=== PATIENT | female | born 1955 | race Caucasian/White ===

== ENCOUNTER 2023-12-29 14:26 | Day surgery (SDC) | payer MEDICARE, BC ==
[2023-12-29] MEDS: Polymyxin B/Trimethoprim 10 ML Bottle EYERT SCH (15:52)
[2023-12-29] MEDS: Brimonidine 0.2% Ophth Soln 5 ML Bottle EYERT SCH (15:57)
[2023-12-29] MEDS: Phenylephrine 2.5% Ophth Soln 2 ML Bot EYERT SCH (16:09)
[2023-12-29] MEDS: Tropicamide 1% Ophth Soln 3 ML Bottle EYERT SCH (16:12)
[2023-12-29] MEDS: Tetracaine HCl/PF 0.5% 4 ML Bottle EYEBOTH SCH (16:47)
[2023-12-29] MEDS: Lidocaine 1% PF 2 ML SDV INJECT SCH (17:09)
[2023-12-29] MEDS: Cefuroxime 10 MG/ML SYRINGE EYERT SCH (17:20)
[2023-12-29] MEDS: Pilocarpine 4% Ophth Soln 15 ML Bot EYERT SCH (17:20)
== END 2023-12-29 17:32 | disposition home or self-care (01) ==
LOC: JD.SDS 14:26
PROVIDERS: ATTEND Ophthalmology
DX: H25.811 Combined forms of age-related cataract, right eye (principal); H21.81 Floppy iris syndrome; H21.41 Pupillary membranes, right eye; I10 Essential (primary) hypertension; J45.909 Unspecified asthma, uncomplicated; Z96.1 Presence of intraocular lens
CPT/HCPCS: 66982; A9270; J0697; J3490; V2632